=== PATIENT | male | born 1990 | race Caucasian/White ===

== ENCOUNTER 2018-06-14 04:38 | Emergency (ER) | payer OTHER ==
[~2018-06-14] VITALS: Ht 177.8 cm; Wt 117.9 kg
[~2018-06-14 04:38] MED LIST: ALBU90I INH; ALBU90OI INH; AMOX875 PO; CYCL10 PO; FLUSAL1005 IH; HYDACE5 PO; NAPR500 PO; OXYACE5T PO; PERM5TC TOP; PRED20 PO; PROM25 PO; Ultram50 MG PO
== END 2018-06-14 05:22 | disposition home or self-care (01) ==
LOC: ER 04:38
DX: H16.133 Photokeratitis, bilateral (principal); J45.909 Unspecified asthma, uncomplicated; F17.290 Nicotine dependence, other tobacco product, uncomplicated; W89.8XXA Exposure to other man-made visible and ultraviolet light, initial encounter
CPT/HCPCS: 99283

== ENCOUNTER 2021-08-01 21:09 | Emergency (ER) | payer OTHER ==
[~2021-08-01] VITALS: Ht 180.3 cm; Wt 150.6 kg
== END 2021-08-01 22:54 | disposition home or self-care (01) ==
LOC: ER 21:09
DX: F41.1 Generalized anxiety disorder (principal); Z88.0 Allergy status to penicillin
CPT/HCPCS: 93005; 93010; 99283-25; A9270

== ENCOUNTER 2025-02-11 22:05 | Inpatient (IN) | payer OTHER ==
[~2025-02-11] VITALS: Ht 172.7 cm; Wt 166.7 kg
[2025-02-11 23:06] LABS: Hematocrit 40.4 % (37.0-53.0); Hemoglobin 14.4 g/dL (13.5-17.5); Mean Corpuscular HGB Conc 35.6 g/dL (31.5-36.5); Mean Corpuscular Volume 80 fL (80-100); NRBC ABSOLUTE 0.00 K/mm3 (0.00-0.02); NRBC Auto 0.0 /100 WBC (0.0-0.2); Platelet Count 106 K/mm3 (150-400); RDW Coefficient Variation 13.0 % (11.7-14.2); RDW Standard Deviation 37.0 fL (35.1-46.3)
[2025-02-11 23:28] LABS: Alanine Aminotransfer (ALT/SGP 123.0 U/L (12-78); Albumin, Blood 2.7 g/dL (3.4-5.0); Albumin/Globulin Ratio 0.6 (0.8-1.8); Anion Gap 15.0 mmol/L (3-11); Aspartate Aminotrans (AST/SGOT 214.0 U/L (12-37); Bilirubin, Total 1.2 mg/dL (0.1-1.0); Blood Urea Nitrogen 35.0 mg/dL (8-24); CO2, Blood 21.0 mmol/L (21-32); Calcium, Blood 8.7 mg/dL (8.5-10.1); Chloride, Blood 85.0 mmol/L (98-108); Creatinine, Blood 1.4 mg/dL (0.60-1.20); Globulin, Blood 4.9 g/dL (2.2-4.0); Glucose, Blood 114.0 mg/dL (70-99); Potassium, Blood 2.9 mmol/L (3.5-5.5); Sodium, Blood 118.0 mmol/L (136-145); Total Protein, Blood 7.6 g/dL (6.4-8.2)
[2025-02-11 23:30] LABS: BAND PERCENT MAN 4 % (0-8); BASOPHILS ABSOLUTE MAN 0.00 K/mm3 (0.00-0.23); BASOPHILS PERCENT MAN 0 % (0-2); EOSINOPHILS ABSOLUTE MAN 0.00 K/mm3 (0.00-0.68); EOSINOPHILS PERCENT MAN 0 % (0-6); LYMPHOCYTES ABSOLUTE MAN 4.02 K/mm3 (0.84-5.20); LYMPHOCYTES PERCENT MAN 16 % (21-46); MONOCYTES ABSOLUTE MAN 7.29 K/mm3 (0.16-1.47); MONOCYTES PERCENT MAN 29 % (4-13); NEUTROPHILS ABSOLUTE MAN 13.82 K/mm3 (1.96-9.15); SEG NEUTROPHILS PERCENT MAN 51 % (41-73)
[2025-02-11] MEDS ORDERED: NS 1,000 ML IV SCH (23:55)
[2025-02-11] MEDS ORDERED: CefTRIAXone Sodium 2,000 MG in NS 100 ML IV ONE (23:55)
[2025-02-12] VITALS (30 sets, daily range): BP systolic 106–168; BP diastolic 67–111
[2025-02-12] MEDS ORDERED: NS 1,000 ML IV SCH ×2 (00:15→03:30)
[2025-02-12 01:40] LABS: Source, Urine Voided
[2025-02-12 01:44] LABS: Bilirubin, Urine Neg (Neg); Glucose Qualitative, Urine Neg (Neg); Ketones, Urine Neg (Neg); Leukocyte Esterase, Urine Neg (Neg); Protein, Urine 3+ (Neg); Specific Gravity, Urine 1.010 (1.003-1.022); Urobilinogen, Urine NORM (Normal)
[2025-02-12 01:45] LABS: Color, Urine Yellow (P-Yellow)
[2025-02-12 01:51] LABS: White Blood Cells, Urine Not Seen /hpf (0-5)
[2025-02-12 01:51] LABS: Influenza A, PCR NEGATIVE (NEGATIVE); Influenza B, PCR NEGATIVE (NEGATIVE); Resp Syncytial Virus, PCR NEGATIVE (NEGATIVE); SARS-Cov-2 (COVID-19) PCR, MMC NEGATIVE (NEGATIVE)
[2025-02-12] MEDS ORDERED: Vancomycin HCL 2,000 MG in NS 520 ML IV ONE (02:25)
[2025-02-12] MEDS ORDERED: Potassium Chl 20MEQ/Water100ML 100 ML IV ONE (02:25)
[2025-02-12] MEDS ORDERED: Ketorolac Tromethamine 30mg Vial IV ONE (02:35)
[2025-02-12] MEDS ORDERED: FLU VACC TS2025-26(6MOS UP)/PF 45 MCG/0.5 ML SYRINGE IM SCH (02:55)
[2025-02-12] MEDS ORDERED: NS 1,000 ML IV ONE ×2 (02:55→03:24)
[2025-02-12] MEDS ORDERED: Ondansetron HCl 2 MG / ML 2ML Vial IV PRN (02:55)
[2025-02-12] MEDS ORDERED: Vancomycin (Pharmacy Consult) IV SCH (03:00)
[2025-02-12] MEDS ORDERED: Cefepime HCl 1,000 MG in NS 100 ML IV SCH (03:04)
[2025-02-12] MEDS ORDERED: Albumin (Human) 25gm/100ml 100 ML IV ONE (03:15)
[2025-02-12 04:14] LABS: U Amphetamine Screen Not Detected; U Barbituate Screen Not Detected; U Benzodiazapine Screen Not Detected; U Buprenorphine Screen Not Detected; U Cannabinoids Screen Not Detected; U Cocaine Screen Not Detected; U Methadone Screen Not Detected; U Methamphetamine Screen Not Detected; U Opiates Screen Not Detected; U Oxycodone Screen Not Detected; U Phencyclidine Screen Not Detected
[2025-02-12 04:17] LABS: Hematocrit 34.7 % (37.0-53.0); Hemoglobin 12.2 g/dL (13.5-17.5); Mean Corpuscular HGB Conc 35.2 g/dL (31.5-36.5); Mean Corpuscular Volume 81 fL (80-100); NRBC ABSOLUTE 0.00 K/mm3 (0.00-0.02); NRBC Auto 0.0 /100 WBC (0.0-0.2); Platelet Count 94 K/mm3 (150-400); RDW Coefficient Variation 13.2 % (11.7-14.2); RDW Standard Deviation 38.5 fL (35.1-46.3)
[2025-02-12 04:35] LABS: Prothrombin Time Results 13.9 Sec (9.7-11.5)
[2025-02-12 04:47] LABS: BAND PERCENT MAN 3 % (0-8); BASOPHILS ABSOLUTE MAN 0.00 K/mm3 (0.00-0.23); BASOPHILS PERCENT MAN 0 % (0-2); EOSINOPHILS ABSOLUTE MAN 0.00 K/mm3 (0.00-0.68); EOSINOPHILS PERCENT MAN 0 % (0-6); LYMPHOCYTES % ATYPICAL MANUAL 1 % (0-0); LYMPHOCYTES ABSOLUTE MAN 2.39 K/mm3 (0.84-5.20); LYMPHOCYTES PERCENT MAN 12 % (21-46); MONOCYTES ABSOLUTE MAN 3.32 K/mm3 (0.16-1.47); MONOCYTES PERCENT MAN 18 % (4-13); Magnesium, Blood 1.3 mg/dL (1.6-2.4); NEUTROPHILS ABSOLUTE MAN 12.73 K/mm3 (1.96-9.15); SEG NEUTROPHILS PERCENT MAN 66 % (41-73)
[2025-02-12 04:52] LABS: Alanine Aminotransfer (ALT/SGP 115.0 U/L (12-78); Albumin, Blood 2.3 g/dL (3.4-5.0); Albumin/Globulin Ratio 0.6 (0.8-1.8); Anion Gap 13.0 mmol/L (3-11); Aspartate Aminotrans (AST/SGOT 211.0 U/L (12-37); Bilirubin, Total 1.1 mg/dL (0.1-1.0); Blood Urea Nitrogen 36.0 mg/dL (8-24); CO2, Blood 20.0 mmol/L (21-32); Calcium, Blood 7.5 mg/dL (8.5-10.1); Chloride, Blood 91.0 mmol/L (98-108); Creatinine, Blood 1.5 mg/dL (0.60-1.20); Globulin, Blood 4.1 g/dL (2.2-4.0); Glucose, Blood 117.0 mg/dL (70-99); Phosphorus, Blood 2.0 mg/dL (2.5-4.9); Potassium, Blood 2.9 mmol/L (3.5-5.5); Sodium, Blood 121.0 mmol/L (136-145); Total Protein, Blood 6.4 g/dL (6.4-8.2)
[2025-02-12] MEDS ORDERED: Potassium Phosphate Dibasic 30 MM in Dextrose 5% 500 ML IV STA (06:45)
[2025-02-12] MEDS ORDERED: Magnesium Sulf 2 GM/Water 50ML 50 ML IV ONE (06:45)
[2025-02-12] MEDS ORDERED: Enoxaparin 40 MG/0.4 ML SYR SC SCH (09:00)
[2025-02-12] MEDS ORDERED: Ketorolac Tromethamine 15mg Vial IV PRN (09:45)
[2025-02-12 12:04] LABS: Campylobacter Sp Not Detected (NOT DETECT); E. Coli O157 Not Detected (NOT DETECT); Enteroaggregative E. coli-EAEC Not Detected (NOT DETECT); Enteropathogenic E. coli-EPEC Not Detected (NOT DETECT); Enterotoxigenic E. coli-ETEC Not Detected (NOT DETECT); Salmonella Sp Not Detected (NOT DETECT); Shiga Toxin-prod E. coli-STEC Not Detected (NOT DETECT); Shigella/Enteroin E. coli-EIEC Not Detected (NOT DETECT); Vibrio Sp Not Detected (NOT DETECT)
[2025-02-12] MEDS ORDERED: SuccINYLCHOLINE Chloride 100 MG/5 ML 5MLSYR IV ONE (16:43)
[2025-02-12] MEDS ORDERED: Propofol 10mg/ml 20 ml Vial (Procedural) IV ONE (16:43)
[2025-02-12] MEDS ORDERED: Midazolam HCl 1MG / ML 2ML Vial IV ONE (16:43)
[2025-02-12] MEDS ORDERED: Rocuronium Bromide 10 MG/ML 5ML Injection IV ONE (16:43)
--- NOTE | 2025-02-12 17:49 | NUR ---
SHIFT SUMMARY PT ASLEEP IN BED AT TIME OF BEDSIDE REPORT W/ NOC RN. PT A/OX4, MOVES ALL EXTREMITIES SPONTANEOUSLY, AND CALLS APPROPRIATELY. PT COMPLAINS OF BILATERAL SHOULDER AND CHEST PAIN THAT WORSENS W/ MOVEMENT AND COUGHING, PAIN WELL TREATED W/ REPOSITION AND MEDS PER MAR. PT TACHYPNEIC W/ EXERTION AND LUNGS SOUNDS DIM W/ RHONCHI. BREATHS SHALLOW AND LABORED W/ EXERTION, EVEN AND UNLABORED W/ REST. CONGESTED COUGH W/ MINIMAL SPUTUM. SINUS TACHY ON MONITOR, CAP REFILL<3 SEC, MINIMAL EDEMA ON BLE. BOWEL SOUNDS HYPOACTIVE AND ABD FIRM/NONTENDER. PT STATES ABD IS BASELINE. PT HAVING FREQUENT LIQUID STOOLS, IS CONTINENT OF BOWEL/BLADDER. SKIN INTACT AND W/O BREAKDOWN. ECHO COMPLETED TODAY, PLAN FOR GERSON ON 02/13. ACCESS: RAC PIV, LAC PIV
[2025-02-12] MEDS ORDERED: Lactobacil 2-S.Thermo-Bifido 1 1 Cap PO SCH (21:00)
[2025-02-13] VITALS (13 sets, daily range): BP systolic 114–155; BP diastolic 73–102
[2025-02-13 03:32] LABS: BASOPHILS ABSOLUTE AUTO 0.08 K/mm3 (0.00-0.23); BASOPHILS PERCENT AUTO 0 % (0-2); EOSINOPHILS ABSOLUTE AUTO 0.01 K/mm3 (0.00-0.68); EOSINOPHILS PERCENT AUTO 0 % (0-6); Hematocrit 36.0 % (37.0-53.0); Hemoglobin 12.7 g/dL (13.5-17.5); IMMATURE GRAN ABSOLUTE AUTO 0.46 K/mm3 (0.00-0.10); IMMATURE GRAN PERCENT AUTO 2 % (0-1); LYMPHOCYTES ABSOLUTE AUTO 1.99 K/mm3 (0.84-5.20); LYMPHOCYTES PERCENT AUTO 10 % (21-46); MONOCYTES ABSOLUTE AUTO 4.54 K/mm3 (0.16-1.47); MONOCYTES PERCENT AUTO 24 % (4-13); Mean Corpuscular HGB Conc 35.3 g/dL (31.5-36.5); Mean Corpuscular Volume 82 fL (80-100); NEUTROPHILS ABSOLUTE AUTO 12.10 K/mm3 (1.96-9.15); NEUTROPHILS PERCENT AUTO 63 % (41-73); NRBC ABSOLUTE 0.00 K/mm3 (0.00-0.02); NRBC Auto 0.0 /100 WBC (0.0-0.2); Platelet Count 118 K/mm3 (150-400); RDW Coefficient Variation 13.7 % (11.7-14.2); RDW Standard Deviation 40.8 fL (35.1-46.3)
[2025-02-13 03:51] LABS: Alanine Aminotransfer (ALT/SGP 131 U/L (12-78); Albumin, Blood 2.3 g/dL (3.4-5.0); Albumin/Globulin Ratio 0.5 (0.8-1.8); Anion Gap 13 mmol/L (3-11); Aspartate Aminotrans (AST/SGOT 220 U/L (12-37); Bilirubin, Total 1.2 mg/dL (0.1-1.0); Blood Urea Nitrogen 38 mg/dL (8-24); CO2, Blood 18 mmol/L (21-32); Calcium, Blood 8.6 mg/dL (8.5-10.1); Chloride, Blood 97 mmol/L (98-108); Creatinine, Blood 1.13 mg/dL (0.60-1.20); Globulin, Blood 4.5 g/dL (2.2-4.0); Glucose, Blood 109 mg/dL (70-99); Potassium, Blood 3.4 mmol/L (3.5-5.5); Sodium, Blood 125 mmol/L (136-145); Total Protein, Blood 6.8 g/dL (6.4-8.2); Vancomycin, Trough 12.7 ug/mL (5.0-10.0)
[2025-02-13] MEDS ORDERED: NS 1,000 ML IV SCH (04:05)
--- NOTE | 2025-02-13 06:29 | NUR ---
SHIFT SUMMARY: PT REMAINS A&OX4, ABLE TO MAKE NEEDS KNOWN AND PARTICIPATE IN CARE. PT AFEBRILE T/O THE NIGHT. PT CONTINUES TO ENDORSE 8-9/10 ACUTE PAIN TO BILAT SHOULDERS, L KNEE, R ANKLE, AND BACK THAT HE DESCRIBES "MUSCLE PAIN" THAT "INCREASES W/MOVEMENT." PT WAS PRETTY RESTLESS T/O THE NIGHT, REQUIRING MULTIPLE DOSES OF PRN TORADOL. HOSPITALISTS CALLED AND ADDITIONAL ORDERS FOR BACLOFEN, AND TYLENOL WERE OBTAINED AND GIVEN. PT REPORTED SOME RELIEF, BUT "NOT MUCH." PT UNABLE TO GET COMFORTABLE IN BED, WAS UP WALKING AROUND UNIT, AND IN CHAIR MOST OF THE NIGHT. PT SBP STABLE, MAP >65. HR 90S-110S, SINUS. PT REMAINS ON RA. SATS >92%. BREATHS SHALLOW, TACHYPNEIC. PT HAS PRODUCTIVE HACKING COUGH NOW, MINIMAL SPUTUM NOTED. BT HYPOACTIVE X4, ABD FIRM AND NONTENDER. NO VOMITING, REMAINS NPO. CONTINUES TO HAVE DIARRHEA. ORDERS FOR IMMODIUM OBTAINED AND GIVEN. REMAINS CONTINENT OF BOTH BOWEL AND BLADDER. SKIN INTACT. PIV IN DAVIS AND POWERGLIDE IN HERMINIA. THIS RN TO REPORT TO ONCOMING RN. PLAN FOR GERSON TODAY.
[2025-02-13 08:46] LABS: Magnesium, Blood 2.4 mg/dL (1.6-2.4); Phosphorus, Blood 2.8 mg/dL (2.5-4.9)
[2025-02-13] MEDS ORDERED: Pantoprazole Sodium 40 MG Injection IV SCH (09:00)
[2025-02-13] MEDS ORDERED: Ipratropium/Albuterol SulF 2.5-0.5MG/3 ML Amp INH SCH (09:10)
[2025-02-13] MEDS ORDERED: Albuterol 2.5 MG/3 ML VIAL INH PRN (09:10)
--- NOTE | 2025-02-13 10:00 | NUR ---
AM NOTE PT IN CHAIR AT TIME OF BEDISDE REPORT W/ NOC RN. PT A/OX4, ABLE TO MOVE ALL EXTREMITIES SPONTANEOUSLY, AND CALL APPROPRIATELY. PT STATES HE HAS NOT BEEN GETTING MORE THAN 2 HOURS OF SLEEP PER NIGHT WHILE IN HOSPITAL, THIS WAS ADDRESSED W/ ABRIO, ORDERS PLACED FOR SLEEP HYGEINE SUPPORTIVE MED. PT STATES HE CONTINUES TO HAVE CHEST PAIN W/ COUGH AND BILATERAL SHOULDER/BACK PAIN. THIS PAIN IN WELL ADDRESSED W/ MEDS PER MAR AND REPOSITIONING. PT SATURATING >93% ON RA, LUNGS SOUNDS W/ INSPIRATORY WHEEZE AND RHONCHI. PT HAS DRY HACKING COUGH, ORDERS PLACED FOR MUCOLYTIC. NSR TO SINUS TACHY ON MONITOR, MAPS>65, CAP REFILL<3 SEC, AND MILD EDEMA ON BLE. ABD SOFT AND NONTENDER, BOWEL SOUNDS ACTIVE. PT TOLERATING CLEAR LIQUID DIET. PT TO BE NPO AFTER MIDNIGHT FOR POTENTIAL GERSON TOMORROW. BT CONTINENT OF BOWEL AND BLADDER. SKIN INTACT AND W/O BREAKDOWN. REPORT HANDED OFF TO CAMPBELL Cardoso RN
[2025-02-13] MEDS ORDERED: Cefepime HCl 2,000 MG in NS 100 ML IV SCH (16:00)
[2025-02-13] MEDS ORDERED: Enoxaparin 40 MG/0.4 ML SYR SC SCH (21:00)
[2025-02-14] VITALS (32 sets, daily range): BP systolic 109–173; BP diastolic 65–139
[2025-02-14 03:29] LABS: BASOPHILS ABSOLUTE AUTO 0.11 K/mm3 (0.00-0.23); BASOPHILS PERCENT AUTO 1 % (0-2); EOSINOPHILS ABSOLUTE AUTO 0.06 K/mm3 (0.00-0.68); EOSINOPHILS PERCENT AUTO 0 % (0-6); Hematocrit 35.4 % (37.0-53.0); Hemoglobin 12.2 g/dL (13.5-17.5); IMMATURE GRAN ABSOLUTE AUTO 0.70 K/mm3 (0.00-0.10); IMMATURE GRAN PERCENT AUTO 3 % (0-1); LYMPHOCYTES ABSOLUTE AUTO 3.16 K/mm3 (0.84-5.20); LYMPHOCYTES PERCENT AUTO 14 % (21-46); MONOCYTES ABSOLUTE AUTO 3.90 K/mm3 (0.16-1.47); MONOCYTES PERCENT AUTO 18 % (4-13); Mean Corpuscular HGB Conc 34.5 g/dL (31.5-36.5); Mean Corpuscular Volume 83 fL (80-100); NEUTROPHILS ABSOLUTE AUTO 14.17 K/mm3 (1.96-9.15); NEUTROPHILS PERCENT AUTO 64 % (41-73); NRBC ABSOLUTE 0.00 K/mm3 (0.00-0.02); NRBC Auto 0.0 /100 WBC (0.0-0.2); Platelet Count 185 K/mm3 (150-400); RDW Coefficient Variation 14.0 % (11.7-14.2); RDW Standard Deviation 42.3 fL (35.1-46.3)
[2025-02-14 03:49] LABS: Alanine Aminotransfer (ALT/SGP 138 U/L (12-78); Albumin, Blood 2.2 g/dL (3.4-5.0); Albumin/Globulin Ratio 0.5 (0.8-1.8); Anion Gap 11 mmol/L (3-11); Aspartate Aminotrans (AST/SGOT 196 U/L (12-37); Bilirubin, Total 1.6 mg/dL (0.1-1.0); Blood Urea Nitrogen 32 mg/dL (8-24); CO2, Blood 20 mmol/L (21-32); Calcium, Blood 8.5 mg/dL (8.5-10.1); Chloride, Blood 100 mmol/L (98-108); Creatinine, Blood 1.18 mg/dL (0.60-1.20); Globulin, Blood 4.5 g/dL (2.2-4.0); Glucose, Blood 101 mg/dL (70-99); Potassium, Blood 3.7 mmol/L (3.5-5.5); Sodium, Blood 127 mmol/L (136-145); Total Protein, Blood 6.7 g/dL (6.4-8.2); Vancomycin, Trough 14.9 ug/mL (5.0-10.0)
--- NOTE | 2025-02-14 05:51 | NUR ---
SHIFT SUMMARY: NO ACUTE CHANGE T/O THE NIGHT. PT REMAINS A&O X4, ABLE TO MAKE NEEDS KNOWN, USES CALL LIGHT APPROPRIATELY, AND AMBULATES AROUND ROOM INDEPENDENTLY W/MIN ASSIST FOR CORDS. PT CONTINUES TO HAVE DIFFICULTY SLEEPING T/O THE NIGHT DESPITE BEING GIVEN SLEEP-AID, PER EMAR, THOUGH HE HAD BETTER RESULTS TAKING SHORT NAPS THIS NIGHT VS YESTERDAY. PT RESTLESS WHEN AWAKE, WANTING TO WALK AROUND, TAKING OFF MONITORS DESPITE SEVERAL REMINDERS TO KEEP THEM ON. PT REMAINED COOPERATIVE DESPITE RESTLESSNESS, THOUGH APPEARED CONFUSED AT TIMES/OBSERVED TO BE TALKING IN HIS SLEEP (WHICH STATES IS NOT HIS BASELINE.) AFEBRILE. SBP STABLE, MAPS>65. HR 90-100S, SINUS/SINUS TACH. PT REMAINS ON RA. SATS >90%. TACHYPNEIC W/ WORK OF BREATHING EXPONENTIALLY INCREASING WHEN AMBULATING. ABD REMAINS DISTENDED, BASELINE. BT ACTIVE X4. TOLERATING CLEAR LIQUID DIET, NPO AT MIDNIGHT. CONTINUES TO USE BEDSIDE TOILET INDEPENDENTLY. POWERGLIDE IN HERMINIA AND PIV TO LAC. CARE CONTINUES. THIS RN TO REPORT TO ONCOMING SHIFT.
[2025-02-14] MEDS ORDERED: D5W-LR 1,000 ML IV SCH (07:55)
[2025-02-14] MEDS ORDERED: CeFAZolin Sodium 2,000 MG in NS 100 ML IV SCH (08:00)
[2025-02-14] MEDS ORDERED: Benzocaine Oral Spray 0.5ML UD ONE (08:27)
[2025-02-14] MEDS ORDERED: NS 1,000 ML IV ONE ×2 (09:10→13:35)
[2025-02-14] MEDS ORDERED: Sugammadex Sodium 200 MG/2ML SDV (100 MG/ML) IV ONE (09:35)
[2025-02-14] MEDS ORDERED: FentaNYL Citrate 50 MCG/ML 2 ML Injection IV PRN (10:05)
[2025-02-14] MEDS ORDERED: Midazolam HCl 1MG / ML 2ML Vial IV PRN (10:05)
[2025-02-14 12:32] LABS: pH Blood Venous 7.43 (7.34-7.37)
[2025-02-14] MEDS ORDERED: NS 1,000 ML BAG IR SCH (13:30)
--- NOTE | 2025-02-14 13:55 | NUR ---
PALLIATIVE CARE VISIT: CONSULT RECEIVED FOR AD/POLST. SPOKE TO PRIMARY RN. ACCORDING TO RN PT HAS DB WHO WANTS TO MAKE DECISIONS FOR PATIENT WHEN HE IS NOT CAPABLE BUT THERE IS NO WRITTEN DOCUMENT STATING SHE IS DECISION MAKER. PT REPORTEDLY DID TELL A PROVIDER (UNKNOWN) THAT HE WANTS DB TO BE DECISION MAKER. PT WAS INTUBATED THIS MORNING BUT IS NOW EXTUBATED AND ON BIPAP. HE IS RESPONDING TO COMMANDS. REQUESTED RN TO CALL WHEN PT IS ABLE TO HAVE CONVERSATION. SEVERAL FAMILY/FRIEND MEMBERS IN ROOM AT THIS TIME. INTRODUCED MYSELF TO RAAD (DB) AND OTHERS IN ROOM AND ADVISED WILL BE PROVIDING SUPPORT TO THEM AND PATIENT. WILL COME BACK AT A BETTER TIME.
--- NOTE | 2025-02-14 18:24 | NUR ---
PALLIATIVE CARE VISIT: CONSULT RECEIVED FOR AD/POLST. PRIMARY RN CALLED TO INFORM PT IS OFF BIPAP AND A/OX4 ABLE TO PARTICIPATE IN CONVERSATION. FAMILY WERE REQUESTED TO LEAVE FOR MEETING WITH PT. WITH PRIMARY RN AND RESIDENT RN PRESENT, DISCUSSED CODE STATUS AND PT WISHES FOR WHO HE WOULD WANT TO BE IS HEALTHCARE WAFER SUBSTRATE TESTER. PT STATES HE WOULD WANT CPR AND HE WOULD BE OKAY WITH BEING INTUBATED AGAIN IF HE NEEDED TO BE. PT STATES HE DOES NOT WANT HIS MOM HIS HEALTHCARE WAFER SUBSTRATE TESTER BECAUSE "IN THE PAST SHE HASN'T ALWAYS MADE GOOD CHOICES". PT STATES HE WANTS HIS FICLAUDIA SHANKAR TO BE HIS HEALTHCARE WAFER SUBSTRATE TESTER IN THE EVENT HE BECOMES UNABLE TO MAKE DECISIONS FOR HIMSELF. PT IS AGREEABLE TO COMPLETING AN ADVANCE DIRECTIVE WITH DB SHANKAR. RAAD WAS REQUESTED TO COME IN FOR MEETING AT THAT POINT. RAAD IS AGREEABLE TO BEING PT HEALTHCARE WAFER SUBSTRATE TESTER. ADVANCE DIRECTIVE WAS COMPLETED. 2 WITNESSES UNRELATED AND IN NO MEANS WILL BE CARING FOR PT, CAME PRESENT AND WITNESSED PT SIGN ADVANCE DIRECTIVE AND THEY ALSO SIGNED WITNESS. AD COPIED, ONE PLACED ON CHART, SENT COPY TO MEDICAL RECORDS AND ORIGINAL GIVEN BACK TO PT.
--- NOTE | 2025-02-14 18:35 | NUR ---
SHIFT SUMMARY PT ALERT AND ORIENTED, ABLE TO MAKE NEEDS KNOWN AND APPROPRIALTEY COMMUNICATES. [place] AND AMBULATES WITH ASSISTANCE FROM NURSING STAFF OR FAMILY. PT HAD SCHEDULED GERSON THIS MORNING, DURING THE PROCEDURE PT WAS UNABLE TO PROTECT AIRWAY AND REQUIRED INTUBATION. PT STABLE WHILE INTUBATED AND GERSON PERFORMED. PT EXTUBATED ONTO BIPAP. ONCE SEDATION WAS CLEARED, PT WAS ABLE TO MOVE TO 2L/NC WHILE AWAKE AND BIPAP WHILE SLEEPING. SPO2 >95% WHILE RESTING BUT DOES DESAT WITH EXERTION. SBP IN THE 150-160'S MAP >65 AND HR IN THE LOW 100'S. PT ON CLEAR LIQUIDS AND TOLERATING WELL, AMBULATES TO TOILET WITH ASSISTANCE. NO BM TODAY AND ABDOMEN REMAIN DISTENDED. NO COMPLAINTS OF PAIN IN ABDOMEN. PT HAS ACUTE PAIN IN THE BACK AND BUE/SHOULDERS, MEDICATED PRN PER EMAR. FAMILY AT BEDSIDE T/O THE DAY. WILL REPORT TO ONCOMING NIGHTSHIFT NURSE.
--- NOTE | 2025-02-14 22:37 | NUR ---
REPORT GIVEN TO SENG Betancur, MEDICAL FLOOR RN AT 4101. PT TRANSFERRED VIA BED AT 3047 ACCOMPANIED BY THIS RN AND KENDRICK WARE. FOLLOWED TEAM TO MEDICAL FLOOR W/ALL OF PATIENT'S BELONGINGS.
[2025-02-14] MEDS ORDERED: NS 250 ML IV PRN (23:00)
--- NOTE | 2025-02-15 03:02 | NUR ---
SHIFT SUMMARY/TRANSFER NOTE: @2200 RE[PRT RECEIVED FROM INTERIOR HORTICULTURIST KATERINA. @224 PT ARRIVED TO THE MEDICAL FLOOR IN A HOSPIITAL/BARIATRIC BED. PT'S BY THE BEDSIDE. PT BROUGHT ALL HIS BELONINGS WITH HIM. EDUCATED COOLER CONVEYOR LOADER LIGHT AND FALL PRECAUTIONS. RT BROUGHT BIPAP FROM THE ICU AND SET IT UP IN THE HOSPITAL ROOM FOR THE PT. PER PT REPORT HE IS ABLE TO USE THE BIPAP 30MINS AT A TIME SINCE IT IS A NEW CONCEPT FOR THE PT. PT IS A/OX 4, ABLE TO MAKE HIS NEEDS KNOWN AND COOPERATIVE WITH CARE. SBA TO THE RESTROOM- ASSISTING WITH ADL'S. PT REPORTS 8/10 ABDOMINAL PAIN THAT RADIATES TO THE BACK. MEDICATED PER EMAR. IV FLUIDS INFUSING ORDERED. PT IS ON 2L VIA NC. RR ELEVATED. CLEAR LIQUID DIET. PER 'S REPORT, PT HAVEN'T SLEPT WELL IN OVER 1-2 DAYS. PROVIDED PRIVACY AND UNINTERRUPTED REST TIME FOR THE PT AND . ALL NEEDS MET. NO ACUTE EVENTS DURING THIS SHIFT. BED AT THE LOWEST POSITION, CALL LIGHT W/I REACH.
[2025-02-15 03:17] VITALS: BP 139/88
[2025-02-15 06:27] LABS: BASOPHILS ABSOLUTE AUTO 0.18 K/mm3 (0.00-0.23); BASOPHILS PERCENT AUTO 1 % (0-2); EOSINOPHILS ABSOLUTE AUTO 0.18 K/mm3 (0.00-0.68); EOSINOPHILS PERCENT AUTO 1 % (0-6); Hematocrit 34.9 % (37.0-53.0); Hemoglobin 11.7 g/dL (13.5-17.5); IMMATURE GRAN ABSOLUTE AUTO 1.26 K/mm3 (0.00-0.10); IMMATURE GRAN PERCENT AUTO 5 % (0-1); LYMPHOCYTES ABSOLUTE AUTO 2.68 K/mm3 (0.84-5.20); LYMPHOCYTES PERCENT AUTO 10 % (21-46); MONOCYTES ABSOLUTE AUTO 3.44 K/mm3 (0.16-1.47); MONOCYTES PERCENT AUTO 13 % (4-13); Mean Corpuscular HGB Conc 33.5 g/dL (31.5-36.5); Mean Corpuscular Volume 85 fL (80-100); NEUTROPHILS ABSOLUTE AUTO 19.12 K/mm3 (1.96-9.15); NEUTROPHILS PERCENT AUTO 71 % (41-73); NRBC ABSOLUTE 0.00 K/mm3 (0.00-0.02); NRBC Auto 0.0 /100 WBC (0.0-0.2); Platelet Count 246 K/mm3 (150-400); RDW Coefficient Variation 14.3 % (11.7-14.2); RDW Standard Deviation 44.4 fL (35.1-46.3)
[2025-02-15 06:49] LABS: Alanine Aminotransfer (ALT/SGP 102.0 U/L (12-78); Albumin, Blood 2.0 g/dL (3.4-5.0); Albumin/Globulin Ratio 0.4 (0.8-1.8); Anion Gap 11.0 mmol/L (3-11); Aspartate Aminotrans (AST/SGOT 128.0 U/L (12-37); Bilirubin, Total 1.1 mg/dL (0.1-1.0); Blood Urea Nitrogen 23.0 mg/dL (8-24); CO2, Blood 20.0 mmol/L (21-32); Calcium, Blood 8.1 mg/dL (8.5-10.1); Chloride, Blood 103.0 mmol/L (98-108); Creatinine, Blood 1.28 mg/dL (0.60-1.20); Globulin, Blood 4.5 g/dL (2.2-4.0); Glucose, Blood 126.0 mg/dL (70-99); Potassium, Blood 3.5 mmol/L (3.5-5.5); Sodium, Blood 130.0 mmol/L (136-145); Total Protein, Blood 6.5 g/dL (6.4-8.2)
[2025-02-15 06:55] LABS: BAND PERCENT MAN 2 % (0-8); BASOPHILS ABSOLUTE MAN 0.00 K/mm3 (0.00-0.23); BASOPHILS PERCENT MAN 0 % (0-2); EOSINOPHILS ABSOLUTE MAN 0.00 K/mm3 (0.00-0.68); EOSINOPHILS PERCENT MAN 0 % (0-6); LYMPHOCYTES ABSOLUTE MAN 2.68 K/mm3 (0.84-5.20); LYMPHOCYTES PERCENT MAN 10 % (21-46); MONOCYTES ABSOLUTE MAN 4.29 K/mm3 (0.16-1.47); MONOCYTES PERCENT MAN 16 % (4-13); NEUTROPHILS ABSOLUTE MAN 19.60 K/mm3 (1.96-9.15); SEG NEUTROPHILS PERCENT MAN 71 % (41-73)
[2025-02-15 07:22] VITALS: BP 148/77
[2025-02-15 13:35] VITALS: BP 144/84
[2025-02-15 15:51] VITALS: BP 144/94
[2025-02-15 19:41] VITALS: BP 148/84
--- NOTE | 2025-02-15 21:08 | NUR ---
AM 10/1- DURING RN CROW GATES AT 0930 FAMILY AND PATIENT REPORTED FEELING LIKE STAFF DID NOT MEED THEIR NEEDS. THEY EXPLAINED THE PULSE OXIMITER WAS GOING OFF NON-STOP AND NO ONE CAME TO CHECK- STATES PT RIPPED THE CONT PULSE OX OFF TRYING TO SLEEP BECAUSE OF THE BEEPING. STATES THEY WERE DENIED A SLEEPING PILL BECAUSE IT WAS AFTER 2100. FELT LIKE THEY WERE "DUMPED OFF FROM THE ICU AND LEFT TO ". EXPLAINED TO FAMILY WE THAT HIS CARE IS TAKEN SERIOUSLY AND HE WOULD BE CLOSELY MONITORED. MOVED THE CONT PULSE OX OUT OF ROOM SO STAFF COULD MONITOR BETTER PT LIKES DOOR CLOSED AND HAD NOT USED CALL LIGHT WHEN BEEPING. ENCOURAGED USE OF CALL LIGHT FOR ALL NEEDS. DISCUSSED WITH PROCUREMENT COORDINATORCHAZ SUÁREZ AND NOTIFIED PT SECONDARY CONNECTOR ARMATURE TO COME SEE FAMILY REGUARDING ISSURES. FAMILY STATED THEY WERE RELEIVED THAT THEY WERE BEING HEARD AND WOULD BE MONITORED CLOSELY T/O SHIFT
--- NOTE | 2025-02-15 21:14 | NUR ---
929- NOTIFIED RN THAT PT NEEDS NEB TX, THEY DECLINED TX AT 0745 WHEN PT SLEEPING, WHEN HE WOKE, RN NOTED PT HAVING SIGNIFICANT WHEEZE, RR 32, ENC COUGH LOUD COARSE UPPER RESP, COUGHED LG AMOUNT OF TENATIOUS BROWN THICK SPUTUM. OXYGEN AT 2L, STILL SATTING 95%. NEB TX ADMIN AIDED IN OPENING AIRWAY, RR DOWN TO 24, PT FELT RELEIF AFTER NEB TX AND COUGHING. ENC PULM TOILET AND FLUTTER. ENFORCING USE OF CPAP WHILE PT SLEEPING BUT PT IS RELUCTANT TO WEAR FOR LONG PERIODS. USING MUCINEX BID, ENC KEEPING HYDRATED AND DRINKING LOTS OF FLUIDS. EXPLAINED THAT SODA IS FULL SUGAR AND KEEPS NEUTROPHILS FROM FULL FUNCTION, ENC WATER INSTEAD.
--- NOTE | 2025-02-15 21:19 | NUR ---
SUMMARY- PT A/O X3-4, EXPLAINS PT HAS MOMENTS OF DELUSION AND NEEDS REORIENTATION SINCE THIS HOSP. PT AMBULATES TO BATHROOM SBA. OXYGEN 2L/NC WITH CONT PULSE OX (CHANGED TO PORTABLE FOR BETTER OBSERBATION). SATTING MOSTLY 95%. LUNGS FREQ COARSE T/O WITH EXP WHEEZE. LG AMOUNTS OF TENACIOUS/THICK BROWN SPUTUM. ENC PULM TOILET AND FLUTTER VALVE. ENC STAYING HYDRATED. PT SHOWERED 2X TODAY MOISTURE VERY BENEFICIAL IN RELEIVING CONGESTION AND AIDING IN CLEARIGN SECRETIONS. ROUTINE NEB'S IN USE. CPAP PLACED DURING NAPS, PT WOULD ONLY WEAR FOR LIMITED PERIODS AND WANT TO TAKE IT OFF. STAFF EDUCATION ON THE IMPORTANCE OF WEARING DEVICE DURING ALL SLEEPING PEROIDS, HE HAS BEEN MORE COMPLIANT TODAY AND WILL CONT TO ENC ALL STAFF TO FOLLOW USE OF CPAP. MAY BENEFIT FROM ANXIOLYTIC PRN TO AID IN USE OF CPAP. PAIN IN L SHOULDDR RELEIVED WITH OXY 10MG APPROX Q6. PT TOLERATING FLUIDS, CONTINUING IVF FOR ONE MORE LITER. STARTED ON FULL LIQ DIET AND ADVANCING SLOWLY, PT FEELS HUNGRY BUT WAS ONLY ABLE TO TOLERATE PUDDING. DENTAL HYGENE CAME IN TO [facility] AND STATED LG AMOUNT OF PUSS FROM RL #30. PT STAES MULT ROUNDS OF ABX IN ATTEMPT TO EXTRACT TOOTH BUT DID NOT PROCEDE. APT MADE FOR EXTRACTION THIS COMING THURSDAY IS PT IS ABLE TO F/U AFTER DISCHARGE. LG FAMILY COMING IN/OUT TO VISIT. SLEEPS IN ROOM AND HELPFUL IN ALL ADL'S. ENC EXTENDED FAMILY TO LIMIT VISITS WHEN IF PT IS NEEDING TO SLEEP. REPORTED ALL TO NOC CHAZ NGUYEN AND LALO
[2025-02-16] VITALS: BP 152/90
[2025-02-16] MEDS ORDERED: LORazepam 2 MG/ML 1ML Injection IV PRN (00:05)
[2025-02-16 04:00] VITALS: BP 139/79
--- NOTE | 2025-02-16 05:22 | NUR ---
SHIFT SUMMARY PATIENT ALERT AND ORIENTED X4. PLEASANT AND RECEPTIVE DURING CARE. NO ACUTE CHANGES DURING THIS SHIFT, VSS. PATIENT ON CONTINUOUS BOIX, USES 4L/NC OR BIPAP AT NIGHT OR MUCH HE CAN. D5LR INFUSING AT 75 MLS/HR. PATIENT GETS ANXIOUS WHEN USING BIPAP,. ATIVAN ADMINISTERED PER EMAR.. PATIENT ABLE TO SELF REPOSITION THROUGHOUT THE SHIFT. MEDICATION ADMINISTERED PER EMAR. BED LOCKED AND IN LOWEST POSITION. CALL LIGHT WITHIN REACH.
[2025-02-16 06:15] LABS: Vancomycin, Trough 19.1 ug/mL (5.0-10.0)
--- NOTE | 2025-02-16 06:18 | NUR ---
PT IS NONCOMPLIANT WITH THE USE OF HIS BIPAP AND GETS VERY ANXIOUS WHEN ITS ON WE GOT A ORDER FOR ATIVAN AND GAVE IT AND WITH LOTS OF ENCOURAGEMENT AND GIVING HIM THE REASON WHY HE NEEDS IT HE DID WEAR IT OFF AND ON FOR ABOUT 3 HRS. FAMILY IS AT BEDSIDE AND THEY SEEM TO MAKE HIM MORE ANXIOUS. HIS RESP HAVE BEEN BETWEEN 23-34 AND HE GETS VERY SOB ON EXERTION. GOT A CALL FROM LAB THAT THE PT HAD A POSITIVE BLOOD CULTURE AND HAD GRAM POSITIVE COCCI IN CLUSTERS. CALLED MD AND LET THEM NO THE RESULTS.
[2025-02-16] MEDS ORDERED: CeFAZolin Sodium 2,000 MG in NS 100 ML IV SCH (16:00)
--- NOTE | 2025-02-16 16:45 | NUR ---
SHIFT SUMMARY PATIENT IS A&OX4, ABLE TO MAKE NEEDS KNOWN, AND FAMILY IN THE ROOM. PATIENT WAS CALM DOWN DURING THE MORNING SHIFTS, NO NOTED HALLUCINATIONS DURING THIS SHIFT, ASKED DOCTOR FOR DIFFERENT MED BECAUSE THE CURRENT MED IN [place] MAY BE CAUSING THE HALLUCINATIONS, AND TALKED TO DOCTOR ABOUT FILLING OUT FMLA FORM. PATIENT HAS BEEN UP AND MOVING THROUGHOUT SHIFT, CALL LIGHT WITHIN REACH.
--- NOTE | 2025-02-16 18:05 | NUR ---
THIS MANAGING JEWELER HAS REVIEWED AND AGREES WITH ALL NOTES AND ASSESSMENTS BY CHAZ MERCADO.
[2025-02-16 20:26] VITALS: BP 184/116
[2025-02-16 23:46] VITALS: BP 164/117
[2025-02-17] VITALS (7 sets, daily range): BP systolic 128–163; BP diastolic 71–100
--- NOTE | 2025-02-17 05:03 | NUR ---
PT HAS BEEN NONCOMPLIANT WITH HIS CARE. HE IS REFUSING TO USE HIS BIPAP AND HAS BEEN REMOVING HIS OXYGEN SEVERAL TIMES. HE WAS AWAKE MOST OF THE NIGHT EVEN AFTER TAKING ATIVAN. HES BEEN VERY RESTLESS. HIS IS IN HIS ROOM AND CALLED THE BROTHER AT 0500 TO BRING HIM IN A BUNCH OF FOOD TO EAT. THE GOT UPSET DUE TO ME NOT ALLOWING THE BROTHER TO COME UP AT 0500 TO BRING HIM FOOD WHEN HE HAD BEEN AWAKE ALL NIGHT.
--- NOTE | 2025-02-17 05:12 | NUR ---
SHIFT SUMMARY- A&Ox4. PLEASANT WITH AT BEDSIDE. CALLS APPROPRIATELY AND IS ABLE TO ADVOCATE NEEDS EFFECTIVELY. PATIENT S O2 CONTINUES TO DESTAT FROM 86% TO 98% WITH INCONSISTANT USE OF NC AND BIPAP. PATIENT IS UNABLE TO GET COMFORTABLE IN BED AND PREFERS THE CHAIR. PT DID NOT SLEEP ON THIS RN S SHIFT. ATIVAN ADMINISTED AT 22:56 IN HOPES THAT PATIENT COULD REST BUT SEEMED TO ACTUALLY MAKE HIS INSOMNIA WORSE. TRAMADOL ADMINISTED AT 04:19 AND PATIENT WAS FINALLY ABLE TO SLEEP IN THE BEDSIDE CHAIR. PATIENT IS ON TELEMETRY AND CONTINUOUS 02 MONITORING. RHYTHM SINUS TACHYCARDIA WITH PVCS. EDEMA BLE. BREATHING IS LABORED AND TACHYPNEIC ON 3/L NC. SX WORSE WITH EXERTION AND PATIENT BECOMES DIAPHORETIC. LUNGS COARSE WITH WHEEZE THROUGH LUNGS. HE HASN T BEEN ABLE TO TOLERATE THE BIPAP FOR LONG PERIODS OF TIME. CONTINENT OF BOWEL AND BLADDER; LBM 02/16/2025. TOLERATING DIET. IV L AC PATENT AND CAPPED. ANTIBIOTICS ADMINISTERED DURING SHIFT WITH NO ISSUE. AMBULATES INDEPENDENTLY c SBA.. MEDS WHOLE c FLUIDS.
[2025-02-17 06:00] LABS: Hematocrit 33.3 % (37.0-53.0); Hemoglobin 10.9 g/dL (13.5-17.5); Mean Corpuscular HGB Conc 32.7 g/dL (31.5-36.5); Mean Corpuscular Volume 87 fL (80-100); NRBC ABSOLUTE 0.00 K/mm3 (0.00-0.02); NRBC Auto 0.0 /100 WBC (0.0-0.2); Platelet Count 331 K/mm3 (150-400); RDW Coefficient Variation 13.9 % (11.7-14.2); RDW Standard Deviation 43.3 fL (35.1-46.3)
[2025-02-17 06:26] LABS: Anion Gap 7.0 mmol/L (3-11); Blood Urea Nitrogen 12.0 mg/dL (8-24); CO2, Blood 25.0 mmol/L (21-32); Calcium, Blood 8.0 mg/dL (8.5-10.1); Chloride, Blood 105.0 mmol/L (98-108); Creatinine, Blood 0.88 mg/dL (0.60-1.20); Glucose, Blood 125.0 mg/dL (70-99); Potassium, Blood 3.6 mmol/L (3.5-5.5); Sodium, Blood 133.0 mmol/L (136-145)
[2025-02-17] MEDS ORDERED: Furosemide 10 MG / ML 2ML Vial IV SCH (10:00)
--- NOTE | 2025-02-17 18:00 | NUR ---
SHIFT SUMMARY PATIENT ALERT AND INTERACTIVE. EXTENSIVE EDUCATION PROVIDED RELATED TO CURRENT ILLNESS, BIPAP USE, DIET, FLUIDS, EDEMA, SKIN CARE, IMPORTANCE OF REST AND WHAT TO EXPECT WITH DISCHARGE. PATIENT AND VERY RECEPTIVE TO EDUCATION. WORKED WITH PATIENT AND BIPAP MACHINE. PATIENT REPORTS THAT HE WILL MAKE MORE OF AN EFFORT TO WEAR DEVICE TONIGHT. PATIENT DOES NOT LIKE LAYING IN BED BECAUSE OF BACK PAIN THAT IS NEW. EDUCATED PATIENT THAT HE CAN SLEEP IN RECLINER IF MORE COMFORTABLE THERE. PATIENT TO HAVE CT DONE OF SPINE. PATIENT STARTED STEROIDS TODAY. PATIENT ABLE TO BE OFF O2 THIS AFTERNOON WITH SATS IN MID 90'S. PATIENT EAGER TO GO HOME BUT UNDERSTANDS SITUATION AND THE IMPORTANCE OF HOSPITAL STAY.
[2025-02-18 00:19] VITALS: BP 155/102
[2025-02-18 03:45] VITALS: BP 150/102
[2025-02-18] MEDS ORDERED: Dextromethorphan Polistirix 30 MG/5 ML 5ML Oral Syringe PO ONE (06:00)
--- NOTE | 2025-02-18 06:43 | NUR ---
COMPUTING ARCHITECT SUMMARY PT A&OX4, VSS. PT COOPERATIVE W/ CARE, USES CALL LIGHT APPROPRIATELY, AND VOICES NEEDS WELL. PT HAS BEEN ASLEEP ON AND OFF THIS SHIFT. CHEST RISE/RESPIRATIONS NOTED. INCREASING TOLERANCE TO BIPAP. PT REPORTS BEING ABLE TO USE IT FOR 4 HOURS. TEMAZEPAM ADMIN 1X W/ MOD EFFECT. PT STATES PERSISTENT COUGH KEEPING HIM AWAKE AND REQUESTED MEDICATION. PROVIDER NOTIFIED AND ORDER FOR DELSYM RECEIVED. SEE EMAR FOR DETAILS. REMAINS ON TELE. SINUS TACH AT 114. HERMINIA PG REMAINS WNL, BUT DOES NOT DRAW. PT HAS BEEN RECEIVING Q6 CEFAZOLIN AND Q8 SOLU-MEDROL. PT SLEEPS IN RECLINER IT IS THE ONLY WAY HE CAN TOLERATE LYING DOWN AND BE ABLE TO GET SOME SLEEP. PERSONAL BELONGINGS AND CALL LIGHT WITHIN REACH FOR SAFETY.
[2025-02-18 07:27] VITALS: BP 164/100
[2025-02-18 11:57] VITALS: BP 149/99
[2025-02-18] MEDS ORDERED: FentaNYL Citrate 50 MCG/ML 2 ML Injection IV PRN (13:45)
[2025-02-18 15:37] VITALS: BP 154/91
--- NOTE | 2025-02-18 18:00 | NUR ---
SHIFT SUMMARY PATIENT ALERT AND INTERACTIVE. PATIENT MORE RECEPTIVE TO EDUCATION TODAY. PATIENT ABLE TO GET PERIODS OF REST. VISITORS LIMITED BY FAMILY. PATIENT ABLE TO TOLERATE BIPAP MORE TODAY WHILE RESTING. PATIENT ON ROOM AIR WHEN OFF BIPAP. PATIENT HAVING L LOWER RIB PAIN WITH COUGHING. PATIENT MEDICATED WITH TRAMADOL AND MUSCLE RELAXER WITH GOOD RESULTS. PULMONOLOGY CONSULTED AND PLAN TO DO TAP TOMORROW OR POSSIBLY TRANSFER BASED ON CT RESULTS. PATIENT TAKEN DOWN TO CT VIA WHEELCHAIR AT END OF SHIFT. FAMILY ESCORTED PATIENT DOWN.
[2025-02-18 20:19] VITALS: BP 166/106
[2025-02-19 00:21] VITALS: BP 159/104
--- NOTE | 2025-02-19 01:02 | NUR ---
CALLED DR ABOUT MIDNIGHT VITALS. SAYS CONTINUE TO MONITOR, CALL BACK IS SYST GOES OVER 180
[2025-02-19 04:45] LABS: Hematocrit 34.6 % (37.0-53.0); Hemoglobin 11.1 g/dL (13.5-17.5); Mean Corpuscular HGB Conc 32.1 g/dL (31.5-36.5); Mean Corpuscular Volume 89 fL (80-100); NRBC ABSOLUTE 0.00 K/mm3 (0.00-0.02); NRBC Auto 0.0 /100 WBC (0.0-0.2); Platelet Count 371 K/mm3 (150-400); RDW Coefficient Variation 13.9 % (11.7-14.2); RDW Standard Deviation 44.9 fL (35.1-46.3)
[2025-02-19 05:01] VITALS: BP 159/105
[2025-02-19 05:03] LABS: Anion Gap 10.0 mmol/L (3-11); Blood Urea Nitrogen 17.0 mg/dL (8-24); CO2, Blood 21.0 mmol/L (21-32); Calcium, Blood 8.4 mg/dL (8.5-10.1); Chloride, Blood 107.0 mmol/L (98-108); Creatinine, Blood 0.77 mg/dL (0.60-1.20); Glucose, Blood 121.0 mg/dL (70-99); Potassium, Blood 4.8 mmol/L (3.5-5.5); Sodium, Blood 133.0 mmol/L (136-145)
--- NOTE | 2025-02-19 05:54 | NUR ---
PT REPORTED INSOMNIA D/T ANXIETY AND REQUESTED A PRN MEDICATION FOR SLEEP, HE WAS MEDICATED PER EMAR. HE WAS NPO SINCE AROUND 2AM IN AN ABUNDANCE OF CAUTION FOR HIS SCHEDULED THORACENTESIS THIS MORNING. PATIENT DID GET IN BED AND SEEMED TO REST COMFORTABLY AFTER THAT. PATIENT WAS SEEN SLEEPING WITHOUT HIS BIPAP HOWEVER HAS NOT DESATTED WITHOUT IT. I DID EDUCATE THE PATIENT AND HIS ON THE IMPORTANCE OF WEARING THE BIPAP WHILE HE IS SLEEPING. OTHERWISE STABLE WITH NO ACUTE EVENTS.
[2025-02-19 07:30] VITALS: BP 150/97
[2025-02-19 12:12] VITALS: BP 165/99
[2025-02-19] MEDS ORDERED: Enoxaparin 40 MG/0.4 ML SYR SC SCH (16:26)
[2025-02-19 16:39] VITALS: BP 165/99
[2025-02-19 16:44] VITALS: BP 165/106
--- NOTE | 2025-02-19 19:20 | NUR ---
SHIFT SUMMARY AND TRANSFER TO [place] PATIENT ALERT AND INTERACTIVE. PATIENT INDEPENDENT IN ROOM. PATIENT PREFERS TO REST IN CHAIR. CONTINUES TO MAKE EFFORT TO WEAR BIPAP AND ABLE TO WEAR WHILE SLEEPING. PATIENT ON ROOM AIR WHILE AWAKE. ULTRASOUND DONE FOR POSSIBLE THORACENTESIS. NOT ENOUGH FLUID TO DRAIN. [facility] CONSULTED RELATED TO CAVITATED LESIONS AND EMPYEMA. PATIENT TRANSFERED TO [place] VIA AMBULANCE. PATIENT AND FAMILY EDUCATED ON NEED/REASON TO TRANSFER. PATIENT ANXIOUS BUT UNDERSTAND. WENT HOME TO GET BELONGINGS, FAMILY UPDATED ON VISITING RESTRICTIONS OF [place]. BELONGINGS SENT WITH AND ROOM CHECK DONE BEFORE DEPARTURE. [place] UPDATED ON DEPARTURE TIME.
--- NOTE | 2025-02-20 10:56 | NUR ---
CRITICAL POSITIVE BLOOD CULTURE RECIEVED FROM LAB ON 02/20/25. GRAM + COCCI IN CLUSTERS IN ONE BLOOD CULTURE. READ BACK CONFIRMED. PATIENT HAD BEEN TRANSFERED TO [facility] 02/19/25. CALL PLACED TO [facility] AND BLOOD CULTURE RESULT GIVEN TO CHAZ COTTON CARING FOR PATIENT. RESULTS ALSO FAXED TO [facility]. CONFIRMED FAX WENT THROUGH.
== END 2025-02-19 17:45 | disposition short-term general hospital (02) | DRG 871 ==
LOC: ER 22:05 → MEDS 02-12 02:53 → ICUE 02-12 02:53 → MEDS 02-14 22:40
PROVIDERS: Emergency Medicine; Internal Medicine; Student in an Organized Health Care Education/Training Program; ADMIT Internal Medicine
PROC: 3E03329 Introduction of Other Anti-infective into Peripheral Vein, Percutaneous Approach (ICD-10-PCS; 2025-02-11)
PROC: 30233J1 Transfusion of Nonautologous Serum Albumin into Peripheral Vein, Percutaneous Approach (ICD-10-PCS; 2025-02-12)
PROC: 3E02340 Introduction of Influenza Vaccine into Muscle, Percutaneous Approach (ICD-10-PCS; 2025-02-12)
PROC: 0BH17EZ Insertion of Endotracheal Airway into Trachea, Via Natural or Artificial Opening (ICD-10-PCS; principal; 2025-02-14)
PROC: 5A1935Z Respiratory Ventilation, Less than 24 Consecutive Hours (ICD-10-PCS; 2025-02-14)
PROC: 5A09457 Assistance with Respiratory Ventilation, 24-96 Consecutive Hours, Continuous Positive Airway Pressure (ICD-10-PCS; 2025-02-14)
PROC: B24BZZ4 Ultrasonography of Heart with Aorta, Transesophageal (ICD-10-PCS; 2025-02-14)
DX: A41.01 Sepsis due to Methicillin susceptible Staphylococcus aureus (principal); I26.90 Septic pulmonary embolism without acute cor pulmonale; J96.01 Acute respiratory failure with hypoxia; K85.90 Acute pancreatitis without necrosis or infection, unspecified; J18.9 Pneumonia, unspecified organism; N17.9 Acute kidney failure, unspecified; E87.1 Hypo-osmolality and hyponatremia; Z68.43 Body mass index [BMI] 50.0-59.9, adult; J96.12 Chronic respiratory failure with hypercapnia; E87.20 Acidosis, unspecified; J90 Pleural effusion, not elsewhere classified; R65.20 Severe sepsis without septic shock; J45.909 Unspecified asthma, uncomplicated; Z88.0 Allergy status to penicillin; Z86.16 Personal history of COVID-19; E87.6 Hypokalemia; E86.0 Dehydration; E66.01 Morbid (severe) obesity due to excess calories; G47.33 Obstructive sleep apnea (adult) (pediatric); R74.01 Elevation of levels of liver transaminase levels; E83.42 Hypomagnesemia; R74.8 Abnormal levels of other serum enzymes; E83.39 Other disorders of phosphorus metabolism; K20.90 Esophagitis, unspecified without bleeding; R19.7 Diarrhea, unspecified; Z28.310 Unvaccinated for COVID-19
CPT/HCPCS: 31500; 31720; 36415; 71045; 71046; 71250; 71260; 72129; 72132; 74177; 80048; 80053; 80202; 81001; 82803; 83605; 83690; 83735; 83880; 84100; 84484; 85025; 85027; 85610; 85651; 86140; 87040; 87070; 87077; 87147; 87185; 87186; 87205; 87335; 87507; 87637; 93005; 93010; 93312; 93325; 93970; 94002; 94640; 94660; 94664; 94760; 94762; 96365-59; 96375; 99285-25; A9270; C1751; C8929; J0330; J0690; J0692; J0696; J1650; J1885; J1938; J2060; J2250; J2405; J2470; J2704; J2919; J3010; J3373; J3475; J3480; J7030; J7040; J7050; J7060; J7121; P9047; Q9957; Q9967